=== PATIENT | female | born 1940 | race Caucasian/White ===

== ENCOUNTER → 2017-05-24 | Outpatient (CLI) | payer MEDICARE, OTHER | END | disposition home or self-care (01) | LOC: GMAH 10:41 | PROVIDERS: ATTEND Family Medicine | DX: E78.2 Mixed hyperlipidemia (principal) ==

== ENCOUNTER → 2017-09-27 | Outpatient (CLI) | payer MEDICARE, OTHER | END | disposition home or self-care (01) | LOC: GMAH 16:26 | PROVIDERS: ATTEND Family Medicine | DX: R31.0 Gross hematuria (principal) ==

== ENCOUNTER → 2018-06-07 | Outpatient (CLI) | payer MEDICARE, OTHER ==
--- NOTE | 2018-06-07 14:05 | MRI ---
EXAM DESCRIPTION: Lumbar Spine w/o Contrast : Magnetic Resonance Imaging. CLINICAL HISTORY: LOW BACK PAIN COMPARISON: LUMBAR TECHNIQUE: Multiplanar, multiple standard sequences, non contrast MRI, lumbar spine. FINDINGS: L5-S1: Disc desiccation anterior disc space loss anterior hypertrophic endplates. Anterior grade 2 Modic reactive changes and type III endplate changes to the right of midline. Trace retrolisthesis. Posterior margin bright T2 signal. Mild to moderate canal narrowing. Mild to moderate left foraminal narrowing with right foraminal stenosis. Right facet arthrosis. L4-5: Grade 1 anterolisthesis 6.8 mm. Almost grade 2. Moderate disc space loss with desiccated disc. Diffuse Modic type II endplate reactive changes. Moderate right foraminal narrowing and mild left foraminal stenosis. AP canal diameter 8 mm. Bilateral facet arthrosis. Bilateral ligamentum flavum hypertrophy impressing on the bilateral subarticular recesses and the descending L5 nerves. Deformity right L5 pars interarticularis. L3-4: Disc desiccation with no significant disc space loss. Trace anterolisthesis. Ligament hypertrophy and bilateral facet effusion. Posterior broad-based 4 mm disc bulge. AP canal diameter 8 mm. Bilateral moderate foraminal narrowing. L2-3: Tiny posterior bulge. Posterior flavum ligament hypertrophy and effusion in the right facet. Moderate canal narrowing. Bilateral severe foraminal narrowing versus stenosis. Well-circumscribed hyperintense T1 and T2 signal in the L2 vertebral body. L1-2: Disc desiccation with no bulging. Hypertrophy of the posterior flavum ligaments. Bilateral mild to moderate foraminal narrowing. Perineural cyst left foramen. T12-L1: Bilateral perineural cysts in the foramina. Normal signal in the disc and disc space preserved. Inferior L1 endplate Modic type II changes. Conus terminates at T12 minimal desiccation of the T11-12 disc with anterior disc bulging. Dextroscoliosis L2-3. Paravertebral soft tissues paraspinal muscle atrophy.. Normal marrow signal in the remaining vertebral bodies and the posterior elements. Vertebral bodies are not compressed at any level. IMPRESSION: 1. Anterior and right side spondylosis L5-S1 with anterolisthesis and disc desiccation. Posterior annular fissure. Right foraminal stenosis and impingement right L5 nerve. 2. Grade 1 anterolisthesis, almost grade 2. Deformity right L5 pars interarticularis. Mild to moderate central canal stenosis. Mild left foraminal stenosis. Hypertrophy facets impinging the descending L5 nerves in the stenotic subarticular recesses. 3. Multifactorial mild to moderate central canal stenosis at L3-4. 4. Bilateral severe foraminal narrowing versus stenosis at L2-3 due to disc spur complex involvement bilaterally. Hemangioma in the L2 vertebral body. 5. Minimal spondylosis T12-L1 with dextroscoliosis mid lumbar spine. Electronically signed by: Korey Crain MD 06/07/2018 2:04 PM CDT
== END ==
LOC: MRI 07:43
PROVIDERS: ATTEND Family Medicine
DX: M47.896 Other spondylosis, lumbar region (principal); D18.09 Hemangioma of other sites; M43.16 Spondylolisthesis, lumbar region

== ENCOUNTER → 2018-07-16 | Outpatient (CLI) | payer MEDICARE, OTHER | LOC: GMAH 13:35 | PROVIDERS: ATTEND Family Medicine | DX: I10 Essential (primary) hypertension (principal); E78.2 Mixed hyperlipidemia ==

== ENCOUNTER → 2018-11-22 | Outpatient (CLI) | payer MEDICARE, OTHER ==
--- NOTE | 2018-11-26 15:15 | MAM ---
EXAM DESCRIPTION: 3D Screening BILATERAL : Digital Mammography. CLINICAL HISTORY: 78 years Female ANNUAL SCREENING . No complaints. No personal or family history of breast cancer. Childbirth. Hysterectomy 34 years ago. Currently on HRT. Lifetime risk of developing breast cancer (Tyrer-Cuzick model)(%): 3.1. COMPARISON: 2-D digital screening bilateral mammography 03/04/2015.. No prior reports available. TECHNIQUE: Bilateral CC and MLO projection full-field images, digital tomosynthesis mammographic technique. Bilateral digital 2-D full-field MLO images. CAD not available for tomosynthesis or 2-D images. FINDINGS: The breast parenchymal density pattern is: Scattered areas of fibroglandular density. No skin thickening or nipple retraction. Bilateral skin markers indicating skin moles. Small nodular densities inferior to the left nipple stable. Scattered nodular-type fibroglandular tissues right more than left stable. Bilateral solitary microcalcifications stable. No new focal, stellate mass or density, focal asymmetry , and no suspicious microcalcifications bilaterally. Stable mammograms compared to prior study. Taking into account, differences in mammographic technique. IMPRESSION: Benign exam. BIRAD CATEGORY: 2 BENIGN FINDINGS. RECOMMENDATIONS: FOLLOW UP: Routine digital bilateral mammographic screening, one year interval from November 2018. Written communication explaining the IMPRESSION and follow-up, will be mailed to the patient and referring health care provider. According to the [employer], yearly mammograms are recommended starting at age 40 and continuing as long as a woman is in good health. Any breast change noted on a breast self-exam should be reported promptly to the patient's healthcare provider. Breast MRI is recommended for women with an approximately 20-25% or greater lifetime risk of breast cancer, including women with a strong family history of breast or ovarian cancer and women who have been treated for Hodgkin's disease. A negative mammographic report should not delay tissue diagnosis in patients with significant clinical history or physical findings. Extremely dense breast tissue limits the sensitivity of digital mammography. Electronically signed by: Korey Crain MD 11/26/2018 3:12 PM [employer] [employer] [facility] [facility]
== END ==
LOC: MAMMO 13:48
PROVIDERS: ATTEND Family Medicine
DX: Z12.31 Encounter for screening mammogram for malignant neoplasm of breast (principal)

== ENCOUNTER → 2019-07-24 | Outpatient (CLI) | payer MEDICARE, OTHER | LOC: GMA MATASK 12:46 | PROVIDERS: ATTEND Family Medicine | DX: I10 Essential (primary) hypertension (principal) ==

== ENCOUNTER → 2020-07-27 | Outpatient (CLI) | payer MEDICARE, OTHER | LOC: GMA MATASK 10:55 | PROVIDERS: ATTEND Family Medicine | DX: I10 Essential (primary) hypertension (principal) ==